=== PATIENT | female | born 1945 | race Caucasian/White ===

== ENCOUNTER 2017-09-10 05:22 | Outpatient (CLI) | payer OTHER ==
[~2017-09-10] VITALS: Ht 157.5 cm; Wt 97.5 kg
[2017-09-10 06:10] VITALS: BP_SYST 122
[2017-09-10] MEDS ORDERED: FLUT1DIS3 INH (06:22)
[2017-09-10] MEDS ORDERED: LISI40TA4 PO (06:22)
[2017-09-10] MEDS ORDERED: LIP20 PO (06:22)
[2017-09-10] MEDS ORDERED: CEFAZOLIN 1 GM IVPB PREMIX 50 ML IV ONE ×2 (06:57→07:00)
[2017-09-10] MEDS ORDERED: POLYMYXIN 500,000/BACIT.10,000 UNITS in NS IRR 1 L IR ONE (07:00)
[2017-09-10] MEDS ORDERED: TRANEXAMIC ACID 1,000 MG/10 ML VIAL IV ONE (07:15)
== END 2017-09-10 07:45 | disposition home or self-care (01) ==
LOC: SLB 05:22 → UNDOADMIN 05:22 → SMU 05:22 → EDSTATUS 07:30 → SLB 07:45 → UNDODISIN 07:45
PROVIDERS: ATTEND Orthopaedic Surgery
DX: M17.11 Unilateral primary osteoarthritis, right knee (principal); J45.909 Unspecified asthma, uncomplicated
CPT/HCPCS: 87081; J0690; J3490; J7120